=== PATIENT | male | born 1960 | race Caucasian/White ===

== ENCOUNTER 2024-12-14 16:42 | Inpatient (IN) ==
[2024-12-14] MEDS: ACETAMINOPHEN 1,000 MG/100 ML BAG IV ONE (17:19)
[2024-12-14] MEDS: 0.9 % SODIUM CHLORIDE 1,000 ML IV ONE ×2 (17:19→18:30)
[2024-12-14 17:45] LABS: Basophils # (Auto) 0.01 K/mcL (0.00-0.30); Basophils % (Auto) 0.1 % (0.0-2.0); Eosinophils # (Auto) 0.28 K/mcL (0.00-0.70); Hematocrit 36.3 % (40.1-51.0); Hemoglobin 12.4 g/dL (13.7-17.5); INR 1.1 (0.9-1.1); Lymphocytes # (Auto) 0.17 K/mcL (1.50-4.80); Lymphocytes % (Auto) 1.8 % (15.5-49.0); Mean Cell Volume 90.8 fL (80.0-100.0); Mean Corpuscular HGB Conc 34.2 g/dL (31.0-36.0); Mean Platelet Volume 10.6 fL (8.8-12.5); Monocytes % (Auto) 4.3 % (1.0-12.0); Neutrophils % (Auto) 90.5 % (38.0-78.0); Platelet Count 110 K/mcL (140-440); Prothrombin Time 15.2 sec (11.9-14.5); Red Cell Distribution Width 13.8 % (11.5-14.5); WBC 9.3 K/mcL (4.5-11.0)
[2024-12-14 17:52] LABS: ALT/SGPT 19 U/L (<40); AST/SGOT 28 U/L (<40); Albumin 3.5 gm/dL (3.2-5.2); Albumin/Globulin Ratio 1.3 (1.0-2.3); Alkaline Phosphatase 66 U/L (39-117); Bilirubin,Total 0.5 mg/dL (0.1-1.0); Blood Urea Nitrogen 15 mg/dL (8-23); Calcium 8.6 mg/dL (8.6-10.4); Carbon Dioxide 18 mmol/L (22-30); Chloride 90 mmol/L (96-108); Globulin 2.8 gm/dL (2.2-3.7); Glomerular Filtration Rate 57; Glucose 143 mg/dL (70-105); Sodium 123 mmol/L (133-145)
[2024-12-14] MEDS: cefTRIAXone 2 GM in DEXTROSE 5% IN WATER 50 ML IV ONE (18:02)
[2024-12-14] MEDS: MAGNESIUM SULFATE 2 GM/50 ML BAG IV ONE (18:19)
[2024-12-14 18:56] LABS: Appearance,Urine Clear (Clear); Bacteria,Urine 0 /hpf (0); Bilirubin,Urine Negative (Negative); Color,Urine Yellow; Glucose,Urine (UA) Negative (Negative); Ketones,Urine Negative (Negative); Leukocyte Esterase,Urine Trace /uL (Negative); Nitrate,Urine Negative (Negative); PH,Urine 5.5 (5.0-9.0); Protein,Urine Trace mg/dL (Negative); Urine Blood Trace-lysed ery/mcL (Negative); Urine Hyaline Cast 2 /lph (0-2); Urine RBC 0 /hpf (0-3); Urine Renal Epithelial Cells 1 /hpf (0-2); Urine Squamous Epithelial Cell 1 /hpf (0-4); Urine WBC 13 /hpf (0-4); Urobilinogen,Urine Normal
[2024-12-14] MEDS: AZITHROMYCIN 500 MG in 0.9 % SODIUM CHLORIDE 250 ML IV ONE (20:32)
[2024-12-14] MEDS ORDERED: DEXTROSE 31 GM ORAL.SUSP PO PRN (20:54)
[2024-12-14] MEDS ORDERED: ONDANSETRON 4 MG ODT TABLET SL PRN (20:54)
[2024-12-14] MEDS ORDERED: MELATONIN 3 MG TABLET PO PRN (20:54)
[2024-12-14] MEDS ORDERED: ONDANSETRON 4 MG/2 ML VIAL IV PRN (20:54)
[2024-12-14] MEDS ORDERED: DEXTROSE 50% 50 ML VIAL IV PRN (20:54)
[2024-12-14] MEDS: AZITHROMYCIN 500 MG in DEXTROSE 5% IN WATER 250 ML IV SCH (21:43)
[2024-12-14] MEDS: AMPICILLIN SODIUM/SULBACTAM NA 3 GM in 0.9 % SODIUM CHLORIDE 100 ML IV SCH ×3 (21:44→22:48)
[2024-12-14] MEDS: MAGNESIUM SULFATE 4 GM/100 ML BAG IV ONE (21:44)
[2024-12-14] MEDS: 0.9 % SODIUM CHLORIDE 1,000 ML IV SCH (21:50)
[2024-12-14] MEDS ORDERED: MAG HYDROX/AL HYDROX/SIMETH 30 ML ORAL.SUSP PO PRN (21:59)
[2024-12-14] MEDS ORDERED: NYSTATIN TOPICAL PRN (21:59)
[2024-12-14 22:03] LABS: Creatine Kinase 175 U/L (24-195)
[2024-12-14] MEDS ORDERED: ACETAMINOPHEN 325 MG TABLET PO PRN (22:05)
[2024-12-14] MEDS: DIVALPROEX SODIUM ER 250 MG TABLET PO SCH (22:22)
[2024-12-14] MEDS: TAMSULOSIN 0.4 MG CAPSULE PO SCH (22:22)
[2024-12-14] MEDS: OLANZapine 5 MG TABLET PO SCH (22:22)
[2024-12-14] MEDS: SENNOSIDES 1 TABLET PO SCH (22:23)
[2024-12-14] MEDS: DOCUSATE SODIUM 100 MG CAPSULE PO SCH (22:23)
[2024-12-14] MEDS: MELATONIN 3 MG TABLET PO PRN (22:23)
[2024-12-14] MEDS: 0.9 % SODIUM CHLORIDE 10 ML SYRINGE IV SCH (22:26)
[2024-12-14] MEDS: INSULIN LISPRO 1 UNIT/0.01 ML UNIT SQ SCH (22:26)
[2024-12-14] MEDS: IPRATROPIUM/ALBUTEROL 3 ML AMPUL.NEB NEB SCH (22:40)
[2024-12-14 22:41] LABS: Prostate Specific Antigen 2.93 ng/mL (<4.50)
[2024-12-15] MEDS ORDERED: METOPROLOL TARTRATE 5 MG/5 ML VIAL IV PRN
[2024-12-15] MEDS: LORazepam 1 MG TABLET PO PRN (00:51)
[2024-12-15] MEDS: METOPROLOL TARTRATE 25 MG TABLET PO STA (00:54)
[2024-12-15] MEDS ORDERED: METOPROLOL TARTRATE 50 MG TABLET PO PRN (01:08)
[2024-12-15 06:24] LABS: Hematocrit 33.2 % (40.1-51.0); Hemoglobin 11.2 g/dL (13.7-17.5); Mean Corpuscular HGB Conc 33.7 g/dL (31.0-36.0); Mean Platelet Volume 10.4 fL (8.8-12.5); Platelet Count 87 K/mcL (140-440); RBC 3.65 M/mcL (4.63-6.08); Red Cell Distribution Width 13.9 % (11.5-14.5); WBC 5.1 K/mcL (4.5-11.0)
[2024-12-15 06:38] LABS: Estimated Average Glucose(eAG) 114 mg/dL; Hemoglobin A1C 5.6 % Hgb (4.0-6.0)
[2024-12-15 06:48] LABS: ALT/SGPT 49 U/L (<40); AST/SGOT 56 U/L (<40); Albumin 3.2 gm/dL (3.2-5.2); Albumin/Globulin Ratio 1.3 (1.0-2.3); Alkaline Phosphatase 76 U/L (39-117); Bilirubin,Total 0.3 mg/dL (0.1-1.0); Blood Urea Nitrogen 9 mg/dL (8-23); Calcium 8.1 mg/dL (8.6-10.4); Carbon Dioxide 19 mmol/L (22-30); Chloride 95 mmol/L (96-108); Globulin 2.5 gm/dL (2.2-3.7); Glomerular Filtration Rate 89; Glucose 102 mg/dL (70-105); Potassium 3.6 mmol/L (3.3-5.1); Sodium 126 mmol/L (133-145)
[2024-12-15 07:44] LABS: Band Neutrophils % 11 % (0-10); Eosinophils % (Manual) 5 % (0-7); Lymphocytes % 2 % (15-49); Monocytes % (Manual) 3 % (1-12); Platelet Estimate NORMAL (Normal); RBC Morphology NORMAL (Normal); Reactive Lymphocytes 3 % (0-2); Segmented Neutrophils % 76 % (38-78)
[2024-12-15] MEDS: MELOXICAM 7.5 MG TABLET PO SCH (08:44)
[2024-12-15] MEDS: BENZTROPINE 1 MG TABLET PO SCH (08:44)
[2024-12-15] MEDS: ASPIRIN 81 MG TAB.CHEW PO SCH (08:44)
[2024-12-15] MEDS: DIVALPROEX SODIUM ER 250 MG TABLET PO SCH (08:44)
[2024-12-15] MEDS: PANTOPRAZOLE 40 MG TABLET PO SCH (08:45)
[2024-12-15] MEDS: FOLIC ACID 1 MG TABLET PO SCH (08:45)
[2024-12-15] MEDS: THIAMINE 100 MG TABLET PO SCH (08:45)
[2024-12-15] MEDS: ATORVASTATIN 10 MG TABLET PO SCH (08:45)
[2024-12-15] MEDS: ENOXAPARIN 40 MG/0.4 ML SYRINGE SQ SCH (08:48)
[2024-12-15] MEDS ORDERED: DOCUSATE SODIUM 100 MG CAPSULE PO SCH (09:00)
[2024-12-15] MEDS: AZITHROMYCIN 500 MG in 0.9 % SODIUM CHLORIDE 250 ML IV SCH (11:02)
[2024-12-15] MEDS: METOPROLOL TARTRATE 5 MG/5 ML VIAL IV SCH (18:53)
[2024-12-16] MEDS: METOPROLOL TARTRATE 50 MG TABLET PO SCH (01:25)
[2024-12-16 07:00] LABS: ALT/SGPT 79 U/L (<40); AST/SGOT 73 U/L (<40); Albumin 3.1 gm/dL (3.2-5.2); Albumin/Globulin Ratio 1.3 (1.0-2.3); Alkaline Phosphatase 132 U/L (39-117); Bilirubin,Total 0.3 mg/dL (0.1-1.0); Blood Urea Nitrogen 7 mg/dL (8-23); Calcium 8.2 mg/dL (8.6-10.4); Carbon Dioxide 20 mmol/L (22-30); Chloride 100 mmol/L (96-108); Globulin 2.4 gm/dL (2.2-3.7); Glomerular Filtration Rate 99; Glucose 120 mg/dL (70-105); Sodium 132 mmol/L (133-145)
[2024-12-16 07:02] LABS: Hematocrit 32.1 % (40.1-51.0); Hemoglobin 10.9 g/dL (13.7-17.5); Mean Cell Volume 90.9 fL (80.0-100.0); Mean Platelet Volume 10.4 fL (8.8-12.5); Platelet Count 102 K/mcL (140-440); RBC 3.53 M/mcL (4.63-6.08); WBC 4.5 K/mcL (4.5-11.0)
[2024-12-16 09:00] LABS: Band Neutrophils % 11 % (0-10); Eosinophils % (Manual) 13 % (0-7); Lymphocytes % 11 % (15-49); Monocytes % (Manual) 8 % (1-12); Platelet Estimate DECREASED (Normal); RBC Morphology NORMAL (Normal); Reactive Lymphocytes 1 % (0-2); Segmented Neutrophils % 56 % (38-78)
[2024-12-16] MEDS: NICOTINE 21 MG PATCH TOPICAL SCH (14:41)
[2024-12-16] MEDS: 0.9 % SODIUM CHLORIDE 1,000 ML IV SCH (16:01)
[2024-12-16] MEDS: LISINOPRIL 20 MG TABLET PO ONE (17:39)
[2024-12-16] MEDS: HALOPERIDOL LACTATE 5 MG/ML VIAL IM ONE (23:48)
[2024-12-16] MEDS: HALOPERIDOL LACTATE 5 MG/ML VIAL ONE (23:49)
[2024-12-17 06:08] LABS: Hemoglobin 10.5 g/dL (13.7-17.5); Mean Cell Volume 91.4 fL (80.0-100.0); Mean Corpuscular HGB Conc 33.9 g/dL (31.0-36.0); Mean Platelet Volume 10.5 fL (8.8-12.5); Platelet Count 111 K/mcL (140-440); RBC 3.39 M/mcL (4.63-6.08); Red Cell Distribution Width 14.1 % (11.5-14.5); WBC 5.4 K/mcL (4.5-11.0)
[2024-12-17 06:19] LABS: ALT/SGPT 82 U/L (<40); AST/SGOT 49 U/L (<40); Albumin 3.1 gm/dL (3.2-5.2); Albumin/Globulin Ratio 1.4 (1.0-2.3); Alkaline Phosphatase 156 U/L (39-117); Bilirubin,Total 0.2 mg/dL (0.1-1.0); Blood Urea Nitrogen 6 mg/dL (8-23); Calcium 8.5 mg/dL (8.6-10.4); Carbon Dioxide 23 mmol/L (22-30); Chloride 102 mmol/L (96-108); Globulin 2.2 gm/dL (2.2-3.7); Glomerular Filtration Rate 106; Glucose 83 mg/dL (70-105); Potassium 3.7 mmol/L (3.3-5.1); Sodium 135 mmol/L (133-145)
[2024-12-17 08:16] LABS: Band Neutrophils % 3 % (0-10); Eosinophils % (Manual) 11 % (0-7); Lymphocytes % 31 % (15-49); Monocytes % (Manual) 3 % (1-12); Platelet Estimate DECREASED (Normal); RBC Morphology NORMAL (Normal); Reactive Lymphocytes 1 % (0-2); Segmented Neutrophils % 51 % (38-78)
[2024-12-17] MEDS: LISINOPRIL 20 MG TABLET PO SCH (10:23)
[2024-12-17] MEDS: MAGNESIUM SULFATE 4 GM/100 ML BAG IV SCH (11:53)
[2024-12-17] MEDS ORDERED: IPRATROPIUM/ALBUTEROL 3 ML AMPUL.NEB NEB PRN (13:00)
[2024-12-17] MEDS: OLANZapine 5 MG TABLET PO SCH (13:39)
[2024-12-17] MEDS: hydrOXYzine 25 MG TABLET PO PRN (13:39)
[2024-12-17] MEDS: cloNIDine HCL 0.1 MG TABLET PO SCH (15:03)
[2024-12-17] MEDS: cloNIDine HCL 0.1 MG TABLET PO PRN (15:31)
[2024-12-17] MEDS: HALOPERIDOL DECANOATE 100 MG/ML IM SCH (15:31)
[2024-12-18 06:49] LABS: ALT/SGPT 64 U/L (<40); AST/SGOT 31 U/L (<40); Albumin 3.1 gm/dL (3.2-5.2); Albumin/Globulin Ratio 1.2 (1.0-2.3); Alkaline Phosphatase 159 U/L (39-117); Bilirubin,Direct < 0.2 mg/dL (0-0.3); Bilirubin,Total < 0.2 mg/dL (0.1-1.0); Blood Urea Nitrogen 7 mg/dL (8-23); Calcium 8.2 mg/dL (8.6-10.4); Carbon Dioxide 23 mmol/L (22-30); Chloride 105 mmol/L (96-108); Globulin 2.5 gm/dL (2.2-3.7); Glomerular Filtration Rate 106; Glucose 97 mg/dL (70-105); Lactate Dehydrogenase 188 U/L (135-225); Phosphorous 3.7 mg/dL (2.5-4.5); Potassium 3.6 mmol/L (3.3-5.1); Sodium 135 mmol/L (133-145); Triglycerides 93 mg/dL (<150); Uric Acid 3.8 mg/dL (2.5-8.0)
[2024-12-18] MEDS ORDERED: hydrALAZINE 20 MG/ML VIAL IV PRN (08:22)
[2024-12-18] MEDS: PROPRANOLOL 10 MG TABLET PO SCH (09:00)
[2024-12-18] MEDS: ALBUMIN HUMAN 12.5 GM/50 ML VIAL IV ONE (13:24)
[2024-12-18] MEDS: FUROSEMIDE 40 MG/4 ML VIAL IV ONE ×2 (14:39→14:43)
[2024-12-19 06:02] LABS: Basophils # (Auto) 0.06 K/mcL (0.00-0.30); Basophils % (Auto) 0.7 % (0.0-2.0); Eosinophils % (Auto) 8.3 % (0.0-7.0); Hematocrit 33.5 % (40.1-51.0); Hemoglobin 11.2 g/dL (13.7-17.5); Lymphocytes # (Auto) 3.12 K/mcL (1.50-4.80); Lymphocytes % (Auto) 37.1 % (15.5-49.0); Mean Cell Volume 92.5 fL (80.0-100.0); Mean Corpuscular HGB Conc 33.4 g/dL (31.0-36.0); Mean Platelet Volume 9.9 fL (8.8-12.5); Monocytes # (Auto) 1.02 K/mcL (0.10-0.90); Monocytes % (Auto) 12.1 % (1.0-12.0); Platelet Count 139 K/mcL (140-440); RBC 3.62 M/mcL (4.63-6.08); Red Cell Distribution Width 14.3 % (11.5-14.5); WBC 8.4 K/mcL (4.5-11.0)
[2024-12-19 06:24] LABS: ALT/SGPT 53 U/L (<40); AST/SGOT 23 U/L (<40); Albumin 3.5 gm/dL (3.2-5.2); Albumin/Globulin Ratio 1.5 (1.0-2.3); Alkaline Phosphatase 153 U/L (39-117); Bilirubin,Direct < 0.2 mg/dL (0-0.3); Bilirubin,Total 0.3 mg/dL (0.1-1.0); Blood Urea Nitrogen 11 mg/dL (8-23); Calcium 8.7 mg/dL (8.6-10.4); Carbon Dioxide 23 mmol/L (22-30); Chloride 101 mmol/L (96-108); Globulin 2.4 gm/dL (2.2-3.7); Glomerular Filtration Rate 99; Glucose 100 mg/dL (70-105); Lactate Dehydrogenase 210 U/L (135-225); Phosphorous 3.8 mg/dL (2.5-4.5); Potassium 3.7 mmol/L (3.3-5.1); Sodium 134 mmol/L (133-145); Triglycerides 102 mg/dL (<150); Uric Acid 4.4 mg/dL (2.5-8.0)
[2024-12-19 07:46] VITALS: TEMP 96.5; O2SAT 97
[2024-12-19] MEDS: FUROSEMIDE 40 MG/4 ML VIAL IV ONE ×2 (12:11→12:35)
[2024-12-19] MEDS: LISINOPRIL 20 MG TABLET PO SCH (12:11)
== END 2024-12-19 13:55 | DRG 871 ==
LOC: ED 16:42 → MEDSUR 20:43
PROVIDERS: ADMIT Internal Medicine Critical Care Medicine; ATTEND Internal Medicine

== ENCOUNTER 2025-01-20 15:18 | Inpatient (IN) ==
[2025-01-20] MEDS: 0.9 % SODIUM CHLORIDE 1,000 ML IV ONE (15:43)
[2025-01-20] MEDS: ACETAMINOPHEN 325 MG TABLET PO ONE (15:52)
[2025-01-20 15:59] LABS: Basophils # (Auto) 0.03 K/mcL (0.00-0.30); Basophils % (Auto) 0.2 % (0.0-2.0); Eosinophils # (Auto) 0.05 K/mcL (0.00-0.70); Eosinophils % (Auto) 0.3 % (0.0-7.0); Hematocrit 38.3 % (40.1-51.0); Hemoglobin 13.2 g/dL (13.7-17.5); Lymphocytes # (Auto) 0.94 K/mcL (1.50-4.80); Lymphocytes % (Auto) 5.9 % (15.5-49.0); Mean Cell Volume 90.1 fL (80.0-100.0); Mean Corpuscular HGB Conc 34.5 g/dL (31.0-36.0); Mean Platelet Volume 10.3 fL (8.8-12.5); Monocytes # (Auto) 1.23 K/mcL (0.10-0.90); Monocytes % (Auto) 7.7 % (1.0-12.0); Neutrophils % (Auto) 85.5 % (38.0-78.0); Platelet Count 138 K/mcL (140-440); RBC 4.25 M/mcL (4.63-6.08); Red Cell Distribution Width 13.8 % (11.5-14.5)
[2025-01-20 16:11] LABS: ALT/SGPT 9 U/L (<40); AST/SGOT 18 U/L (<40); Albumin/Globulin Ratio 1.2 (1.0-2.3); Alkaline Phosphatase 97 U/L (39-117); Bilirubin,Total 0.4 mg/dL (0.1-1.0); Blood Urea Nitrogen 9 mg/dL (8-23); Calcium 9.1 mg/dL (8.6-10.4); Carbon Dioxide 21 mmol/L (22-30); Chloride 92 mmol/L (96-108); Globulin 3.4 gm/dL (2.2-3.7); Glomerular Filtration Rate 89; Glucose 96 mg/dL (70-105); Potassium 4.3 mmol/L (3.3-5.1); Sodium 125 mmol/L (133-145)
[2025-01-20] MEDS: cefTRIAXone 2 GM in DEXTROSE 5% IN WATER 50 ML IV ONE (17:15)
[2025-01-20 17:34] LABS: POC Calcium, Ionized 1.14 (1.16-1.32); POC Creatinine 0.9 (0.6-1.2); POC Potassium 3.5 (3.3-5.1)
[2025-01-20 17:50] LABS: Appearance,Urine Clear (Clear); Bacteria,Urine 0 /hpf (0); Bilirubin,Urine Negative (Negative); Color,Urine Yellow; Glucose,Urine (UA) Negative (Negative); Ketones,Urine Negative (Negative); Leukocyte Esterase,Urine Trace /uL (Negative); Nitrate,Urine Negative (Negative); Protein,Urine Negative (Negative); Urine Blood Small ery/mcL (Negative); Urine RBC 1 /hpf (0-3); Urine Squamous Epithelial Cell 0 /hpf (0-4); Urine WBC 4 /hpf (0-4); Urobilinogen,Urine 0.2 mg/dL
[2025-01-20] MEDS: AZITHROMYCIN 500 MG in 0.9 % SODIUM CHLORIDE 250 ML IV ONE (17:54)
[2025-01-20] MEDS: 0.9 % SODIUM CHLORIDE 1,000 ML IV SCH (17:57)
[2025-01-20 18:02] LABS: C-Reactive Protein 4.05 mg/dL (0.03-0.80)
[2025-01-20] MEDS ORDERED: METOCLOPRAMIDE 10 MG/2 ML VIAL IV PRN (19:26)
[2025-01-20] MEDS ORDERED: POTASSIUM CHLORIDE 20 MEQ TABLET PO PRN ×2 (19:26)
[2025-01-20] MEDS ORDERED: MAGNESIUM SULFATE 2 GM/50 ML BAG IV PRN (19:26)
[2025-01-20] MEDS ORDERED: IPRATROPIUM/ALBUTEROL 3 ML AMPUL.NEB NEB PRN (19:26)
[2025-01-20] MEDS ORDERED: POTASSIUM CHLORIDE 40 MEQ in DEXTROSE 5% IN WATER 500 ML IV PRN (19:26)
[2025-01-20] MEDS ORDERED: SENNOSIDES 1 TABLET PO PRN (19:26)
[2025-01-20] MEDS: POLYETHYLENE GLYCOL 3350 17 GM PACKET PO SCH (20:02)
[2025-01-20] MEDS: 0.9 % SODIUM CHLORIDE 10 ML SYRINGE IV SCH (20:56)
[2025-01-20] MEDS: DOCUSATE SODIUM 100 MG CAPSULE PO SCH (20:56)
[2025-01-20] MEDS ORDERED: hydrOXYzine 25 MG TABLET PO PRN (21:15)
[2025-01-20] MEDS ORDERED: cloNIDine HCL 0.1 MG TABLET PO PRN (21:15)
[2025-01-20] MEDS: PROPRANOLOL 10 MG TABLET PO SCH (22:01)
[2025-01-20] MEDS: cloNIDine HCL 0.1 MG TABLET PO SCH (22:02)
[2025-01-20] MEDS: TAMSULOSIN 0.4 MG CAPSULE PO SCH (22:02)
[2025-01-20] MEDS: OLANZapine 5 MG TABLET PO SCH (22:02)
[2025-01-20] MEDS: BENZTROPINE 1 MG TABLET PO SCH (22:02)
[2025-01-20] MEDS: DIVALPROEX SODIUM 250 MG TABLET PO SCH (22:02)
[2025-01-21 06:13] LABS: Basophils # (Auto) 0.03 K/mcL (0.00-0.30); Basophils % (Auto) 0.2 % (0.0-2.0); Eosinophils # (Auto) 0.06 K/mcL (0.00-0.70); Eosinophils % (Auto) 0.3 % (0.0-7.0); Hematocrit 34.4 % (40.1-51.0); Hemoglobin 11.8 g/dL (13.7-17.5); Lymphocytes # (Auto) 1.93 K/mcL (1.50-4.80); Lymphocytes % (Auto) 10.6 % (15.5-49.0); Mean Cell Volume 90.1 fL (80.0-100.0); Mean Corpuscular HGB Conc 34.3 g/dL (31.0-36.0); Mean Platelet Volume 10.4 fL (8.8-12.5); Monocytes # (Auto) 1.98 K/mcL (0.10-0.90); Monocytes % (Auto) 10.9 % (1.0-12.0); Neutrophils % (Auto) 77.3 % (38.0-78.0); Platelet Count 133 K/mcL (140-440); RBC 3.82 M/mcL (4.63-6.08); WBC 18.2 K/mcL (4.5-11.0)
[2025-01-21 06:26] LABS: ALT/SGPT 7 U/L (<40); AST/SGOT 14 U/L (<40); Albumin 3.3 gm/dL (3.2-5.2); Albumin/Globulin Ratio 1.1 (1.0-2.3); Alkaline Phosphatase 88 U/L (39-117); Bilirubin,Direct < 0.2 mg/dL (0-0.3); Bilirubin,Total 0.3 mg/dL (0.1-1.0); Blood Urea Nitrogen 6 mg/dL (8-23); Calcium 8.8 mg/dL (8.6-10.4); Carbon Dioxide 20 mmol/L (22-30); Chloride 100 mmol/L (96-108); Globulin 2.9 gm/dL (2.2-3.7); Glomerular Filtration Rate 99; Glucose 96 mg/dL (70-105); Lactate Dehydrogenase 199 U/L (135-225); Phosphorous 2.8 mg/dL (2.5-4.5); Potassium 3.8 mmol/L (3.3-5.1); Sodium 131 mmol/L (133-145); Triglycerides 70 mg/dL (<150)
[2025-01-21] MEDS: PANTOPRAZOLE 40 MG TABLET PO SCH (07:26)
[2025-01-21] MEDS: SODIUM BICARBONATE 650 MG TABLET PO SCH (08:19)
[2025-01-21] MEDS: cefTRIAXone 2 GM in DEXTROSE 5% IN WATER 50 ML IV SCH (08:20)
[2025-01-21] MEDS: ATORVASTATIN 10 MG TABLET PO SCH (08:20)
[2025-01-21] MEDS: AZITHROMYCIN 500 MG in 0.9 % SODIUM CHLORIDE 250 ML IV SCH (08:20)
[2025-01-21] MEDS: OLANZapine 5 MG TABLET PO SCH (08:21)
[2025-01-21 08:42] LABS: Band Neutrophils % 13 % (0-10); Lymphocytes % 10 % (15-49); Monocytes % (Manual) 10 % (1-12); Platelet Estimate DECREASED (Normal); RBC Morphology NORMAL (Normal); Segmented Neutrophils % 67 % (38-78)
[2025-01-21] MEDS: POLYETHYLENE GLYCOL 3350 17 GM PACKET PO PRN (09:04)
[2025-01-21] MEDS: ENOXAPARIN 40 MG/0.4 ML SYRINGE SQ SCH (09:12)
[2025-01-21] MEDS: ONDANSETRON 4 MG/2 ML VIAL IV PRN (09:55)
[2025-01-22 06:39] LABS: Hematocrit 32.4 % (40.1-51.0); Hemoglobin 10.9 g/dL (13.7-17.5); Mean Cell Volume 90.5 fL (80.0-100.0); Mean Corpuscular HGB Conc 33.6 g/dL (31.0-36.0); Mean Platelet Volume 10.2 fL (8.8-12.5); Platelet Count 132 K/mcL (140-440); RBC 3.58 M/mcL (4.63-6.08); Red Cell Distribution Width 14.1 % (11.5-14.5); WBC 14.6 K/mcL (4.5-11.0)
[2025-01-22 07:21] LABS: Band Neutrophils % 16 % (0-10); Eosinophils % (Manual) 4 % (0-7); Lymphocytes % 6 % (15-49); Monocytes % (Manual) 5 % (1-12); Platelet Estimate NORMAL (Normal); RBC Morphology NORMAL (Normal); Reactive Lymphocytes 2 % (0-2); Segmented Neutrophils % 67 % (38-78)
[2025-01-22 07:26] LABS: ALT/SGPT 7 U/L (<40); AST/SGOT 10 U/L (<40); Albumin 3.1 gm/dL (3.2-5.2); Albumin/Globulin Ratio 1.1 (1.0-2.3); Alkaline Phosphatase 82 U/L (39-117); Bilirubin,Direct < 0.2 mg/dL (0-0.3); Bilirubin,Total 0.3 mg/dL (0.1-1.0); Blood Urea Nitrogen 8 mg/dL (8-23); Calcium 8.3 mg/dL (8.6-10.4); Carbon Dioxide 22 mmol/L (22-30); Chloride 98 mmol/L (96-108); Globulin 2.8 gm/dL (2.2-3.7); Glomerular Filtration Rate 99; Glucose 85 mg/dL (70-105); Lactate Dehydrogenase 138 U/L (135-225); Phosphorous 2.7 mg/dL (2.5-4.5); Potassium 3.9 mmol/L (3.3-5.1); Sodium 130 mmol/L (133-145); Triglycerides 105 mg/dL (<150); Uric Acid 4.1 mg/dL (2.5-8.0)
[2025-01-22] MEDS: SODIUM CHLORIDE 1 GM TABLET PO SCH (09:14)
[2025-01-23 07:10] LABS: Hematocrit 32.1 % (40.1-51.0); Hemoglobin 10.8 g/dL (13.7-17.5); Mean Cell Volume 91.2 fL (80.0-100.0); Mean Corpuscular HGB Conc 33.6 g/dL (31.0-36.0); Mean Platelet Volume 10.3 fL (8.8-12.5); Platelet Count 147 K/mcL (140-440); RBC 3.52 M/mcL (4.63-6.08); Red Cell Distribution Width 14.1 % (11.5-14.5); WBC 9.1 K/mcL (4.5-11.0)
[2025-01-23 07:38] LABS: ALT/SGPT 11 U/L (<40); AST/SGOT 13 U/L (<40); Albumin 3.1 gm/dL (3.2-5.2); Alkaline Phosphatase 97 U/L (39-117); Bilirubin,Direct < 0.2 mg/dL (0-0.3); Bilirubin,Total 0.2 mg/dL (0.1-1.0); Blood Urea Nitrogen 9 mg/dL (8-23); Calcium 8.5 mg/dL (8.6-10.4); Carbon Dioxide 24 mmol/L (22-30); Chloride 99 mmol/L (96-108); Globulin 3.1 gm/dL (2.2-3.7); Glomerular Filtration Rate 99; Glucose 86 mg/dL (70-105); Lactate Dehydrogenase 165 U/L (135-225); Phosphorous 3.5 mg/dL (2.5-4.5); Sodium 133 mmol/L (133-145); Triglycerides 117 mg/dL (<150); Uric Acid 4.6 mg/dL (2.5-8.0)
[2025-01-23 08:02] LABS: Band Neutrophils % 11 % (0-10); Basophils % (Manual) 1 % (0-2); Eosinophils % (Manual) 4 % (0-7); Lymphocytes % 18 % (15-49); Monocytes % (Manual) 9 % (1-12); Platelet Estimate NORMAL (Normal); RBC Morphology NORMAL (Normal); Reactive Lymphocytes 5 % (0-2); Segmented Neutrophils % 52 % (38-78)
[2025-01-23 12:17] VITALS: O2SAT 98
[2025-01-23 14:51] VITALS: TEMP 98.1
[2025-01-23] MEDS ORDERED: SODIUM CHLORIDE 1 GM TABLET PO SCH (21:00)
== END 2025-01-23 15:02 | DRG 871 ==
LOC: ED 15:18 → MEDSUR 19:20
PROVIDERS: ADMIT Internal Medicine; ATTEND Internal Medicine